=== PATIENT | female | born 1930 | race Caucasian/White ===

== ENCOUNTER 2017-11-08 05:32 | Inpatient (IN) ==
[2017-11-08] MEDS ORDERED: LORazepam 2 MG/1 ML VIAL IV STA ×2 (06:23→07:28)
[2017-11-08] MEDS ORDERED: ONDANSETRON 4 MG/2 ML VIAL IV STA (06:23)
[2017-11-08] MEDS ORDERED: SODIUM CHLORIDE 0.9% 1,000 ML IV STA (06:23)
[2017-11-08 06:38] LABS: Basophils % 0.5 % (0.0-0.8); Eosinophils % 0.3 % (0.00-10.9); Hematocrit 39.4 VOL% (35.7-47.0); Hemoglobin 14.4 GM/DL (12.0-16.0); Immature Granulocytes % 0.3 %; Immature Granulocytes Absolute 0.02 #; Lymphocytes # 0.8 10*3/uL (1.4-4.0); Lymphocytes % 13.3 % (21.3-54.2); Mean Corpuscular HGB Conc 36.5 GM/DL (32-36); Mean Corpuscular Hemoglobin 32 PG (27-34); Mean Corpuscular Volume 87.4 FL (87-102); Mean Platelet Volume 9.2 FL (9.6-12.0); Monocytes # 0.5 10*3/uL (0.11-0.8); Monocytes % 8.2 % (1.7-12.7); Neutrophils # 4.5 10*3/uL (1.4-7.4); Neutrophils % 77.4 % (38.7-73.9); Platelet Count 261 T/CUMM (130-400); Red Blood Count 4.51 MC/CUMM (3.8-5.5); Red Cell Distribution Width 13.1 % (9.3-17.3); White Blood Count 5.9 T/CUMM (4-12)
[2017-11-08 07:07] LABS: Lactic Acid 1.7 MMOL/L (0.4-2.0)
[2017-11-08 07:29] LABS: Bilirubin,Total 0.8 MG/DL (0.2-1.0); Calcium 9.4 MG/DL (8.5-10.1); Osmolality,Calculated 269.1 MOS/KG (273-304); Potassium 3.9 MMOL/L (3.5-5.1); Total Protein 7.8 G/DL (6.4-8.3)
[2017-11-08 08:06] LABS: Apearance,Urine CLEAR (Clear); Bilirubin,Urine Negative (Negative); Blood, Urine Small mg/dL (Negative); Glucose,Urine (UA) Negative (Negative); Ketones,Urine 5 mg/dL (Negative); Mucus,Urine Occasional /LPF (Occasional); Nitrite,Urine Negative (Negative); Protein,Urine Negative; RBC,Urine 2 /HPF (0-4); Urine Color Straw (Yellow); Urine Specific Gravity 1.005 (1.001-1.035); Urine Urobilinogen < 2.0 EU/DL (0.2-1.0); WBC,Urine <1 /HPF (0-6)
[2017-11-08] MEDS ORDERED: ESTROGENS (CONJ) VAG CREAM 30 GM TUBE VAG PRN (12:08)
[2017-11-08] MEDS ORDERED: hydroCHLOROthiazide 12.5 MG CAPSULE PO PRN (12:08)
[2017-11-08] MEDS ORDERED: ONDANSETRON ODT 4 MG TABLET PO PRN (12:08)
[2017-11-08] MEDS ORDERED: FLUTICASONE 50 MCG NASAL SPRAY 16 GM BOTTLE BOTH NARES PRN (12:08)
[2017-11-08] MEDS ORDERED: predniSONE 5 MG TABLET PO PRN (12:08)
[2017-11-08] MEDS ORDERED: POLYETHYLENE GLYCOL POWDER 17 GM PACK PO SCH (12:30)
[2017-11-08] MEDS: SODIUM CHLORIDE 0.9% 1,000 ML IV SCH (13:32)
[2017-11-08] MEDS ORDERED: LINACLOTIDE 145 MCG CAPSULE PO ONE (18:00)
[2017-11-08] MEDS: buPROPion 75 MG TABLET PO SCH (21:05)
[2017-11-08] MEDS: DOCUSATE SODIUM 100 MG CAPSULE PO SCH (21:05)
[2017-11-08] MEDS: POLYETHYLENE GLYCOL POWDER 17 GM PACK PO SCH (21:05)
[2017-11-09 06:31] LABS: Basophils # 0.1 10*3/uL (0.0-0.2); Basophils % 1.1 % (0.0-0.8); Eosinophils # 0.1 10*3/uL (0.0-0.87); Eosinophils % 1.5 % (0.00-10.9); Hematocrit 36.7 VOL% (35.7-47.0); Immature Granulocytes % 0.4 %; Immature Granulocytes Absolute 0.02 #; Lymphocytes # 0.9 10*3/uL (1.4-4.0); Lymphocytes % 16.7 % (21.3-54.2); Mean Corpuscular HGB Conc 35.4 GM/DL (32-36); Mean Corpuscular Hemoglobin 32 PG (27-34); Mean Corpuscular Volume 89.5 FL (87-102); Mean Platelet Volume 9.3 FL (9.6-12.0); Monocytes # 0.4 10*3/uL (0.11-0.8); Monocytes % 7.5 % (1.7-12.7); Neutrophils # 3.9 10*3/uL (1.4-7.4); Neutrophils % 72.8 % (38.7-73.9); Platelet Count 239 T/CUMM (130-400); Red Cell Distribution Width 13.1 % (9.3-17.3); White Blood Count 5.3 T/CUMM (4-12)
[2017-11-09 06:55] LABS: Calcium 8.8 MG/DL (8.5-10.1); Osmolality,Calculated 272.8 MOS/KG (273-304); Potassium 3.6 MMOL/L (3.5-5.1)
[2017-11-09] MEDS ORDERED: LINACLOTIDE 145 MCG CAPSULE PO SCH ×2 (07:30)
[2017-11-09] MEDS ORDERED: PANTOPRAZOLE 40 MG TABLET PO SCH (09:00)
[2017-11-09] MEDS: POLYETHYLENE GLYCOL POWDER 17 GM PACK PO SCH (09:45)
[2017-11-09] MEDS: DOCUSATE SODIUM 100 MG CAPSULE PO SCH (09:45)
[2017-11-09] MEDS: buPROPion 75 MG TABLET PO SCH (09:57)
[2017-11-09] MEDS: SODIUM CHLORIDE 0.9% 1,000 ML IV SCH (10:04)
[2017-11-09 11:29] VITALS: BP 149/85
== END 2017-11-09 14:32 | disposition home or self-care (01) | DRG 392 ==
LOC: N.ED 05:32 → N.EDINP 10:17 → N.2E 11:52
PROVIDERS: ADMIT Internal Medicine; ATTEND Internal Medicine

== ENCOUNTER 2020-10-19 17:05 | Observation (INO) ==
[2020-10-19] MEDS ORDERED: MECLIZINE 25 MG TABLET PO STA (17:33)
[2020-10-19] MEDS ORDERED: SODIUM CHLORIDE 0.9% 500 ML IV STA (17:33)
[2020-10-19] MEDS ORDERED: GLUCAGON 1 MG VIAL IM PRN (18:02)
[2020-10-19] MEDS ORDERED: DEXTROSE 50% 25 GM/50 ML VIAL IV PRN (18:02)
[2020-10-19] MEDS ORDERED: hydrALAZINE 20 MG/1 ML VIAL IV PRN (18:02)
[2020-10-19] MEDS ORDERED: ONDANSETRON 4 MG/2 ML VIAL IV PRN (18:02)
[2020-10-19] MEDS ORDERED: MECLIZINE 25 MG TABLET PO PRN (18:05)
[2020-10-19 18:13] LABS: Basophils % 0.2 % (0.0-0.8); Eosinophils % 0.1 % (0.00-10.9); Hematocrit 36.9 VOL% (35.7-47.0); Hemoglobin 12.4 GM/DL (12.0-16.0); Immature Granulocytes % 0.5 %; Immature Granulocytes Absolute 0.04 #; Lymphocytes # 0.5 10*3/uL (1.4-4.0); Lymphocytes % 5.8 % (21.3-54.2); Mean Corpuscular HGB Conc 33.6 GM/DL (32-36); Mean Corpuscular Volume 95.3 FL (87-102); Mean Platelet Volume 9.5 FL (9.6-12.0); Monocytes % 6.1 % (1.7-12.7); Neutrophils % 87.3 % (38.7-73.9); Platelet Count 211 T/CUMM (130-400); Red Blood Count 3.87 MC/CUMM (3.8-5.5); Red Cell Distribution Width 13.6 % (9.3-17.3); White Blood Count 8.3 T/CUMM (4-12)
[2020-10-19 18:36] LABS: Albumin 3.3 G/DL (3.4-5.0); Bilirubin,Total 0.4 MG/DL (0.2-1.0); Calcium 8.7 MG/DL (8.5-10.1); Potassium 3.8 MMOL/L (3.5-5.1); Total Protein 6.8 G/DL (6.4-8.2)
[2020-10-19] MEDS: SODIUM CHLORIDE 0.9% 1,000 ML IV SCH (19:03)
[2020-10-19] MEDS: ENOXAPARIN 40 MG/0.4 ML SYRINGE SUBCUT SCH (21:00)
[2020-10-19] MEDS ORDERED: MELATONIN 3 MG TABLET PO PRN (22:40)
[2020-10-20 05:31] LABS: Basophils % 0.4 % (0.0-0.8); Eosinophils % 0.1 % (0.00-10.9); Hemoglobin 11.7 GM/DL (12.0-16.0); Immature Granulocytes % 0.4 %; Immature Granulocytes Absolute 0.03 #; Lymphocytes # 1.1 10*3/uL (1.4-4.0); Lymphocytes % 13.9 % (21.3-54.2); Mean Corpuscular HGB Conc 33.4 GM/DL (32-36); Mean Corpuscular Volume 95.4 FL (87-102); Monocytes % 9.3 % (1.7-12.7); Neutrophils % 75.9 % (38.7-73.9); Platelet Count 223 T/CUMM (130-400); Red Blood Count 3.67 MC/CUMM (3.8-5.5); Red Cell Distribution Width 13.5 % (9.3-17.3)
[2020-10-20 05:47] LABS: Calcium 8.8 MG/DL (8.5-10.1); Osmolality,Calculated 271.8 MOS/KG (273-304); Potassium 3.9 MMOL/L (3.5-5.1)
[2020-10-20] MEDS: PANTOPRAZOLE 40 MG TABLET PO SCH (09:03)
[2020-10-20] MEDS: MECLIZINE 25 MG TABLET PO SCH ×3 (09:03→21:38)
[2020-10-20] MEDS: SODIUM CHLORIDE 0.9% 1,000 ML IV SCH ×2 (20:32→21:40)
[2020-10-20] MEDS: ENOXAPARIN 40 MG/0.4 ML SYRINGE SUBCUT SCH (21:38)
[2020-10-21 08:21] VITALS: BP 164/67
[2020-10-21] MEDS: PANTOPRAZOLE 40 MG TABLET PO SCH (09:42)
[2020-10-21] MEDS: MECLIZINE 25 MG TABLET PO SCH (09:42)
[2020-10-21] MEDS: SODIUM CHLORIDE 0.9% 1,000 ML IV SCH (11:35)
== END 2020-10-21 12:31 | disposition home or self-care (01) ==
LOC: EDBD → EDUNIT# → N.4E 17:05 → N.ED 17:05 → SUATTDRO 18:02 → N.4E 19:54
PROVIDERS: ADMIT Internal Medicine; ATTEND Internal Medicine

== ENCOUNTER 2021-03-08 11:26 | Observation (INO) ==
[2021-03-08] MEDS ORDERED: SODIUM CHLORIDE 0.9% 1,000 ML IV STA (11:36)
[2021-03-08 12:38] LABS: Basophils % 0.5 % (0.0-0.8); Eosinophils % 0.2 % (0.00-10.9); Hematocrit 40.3 VOL% (35.7-47.0); Hemoglobin 13.7 GM/DL (12.0-16.0); Immature Granulocytes % 0.3 %; Immature Granulocytes Absolute 0.02 #; Lymphocytes # 0.9 10*3/uL (1.4-4.0); Lymphocytes % 14.5 % (21.3-54.2); Mean Corpuscular Volume 92.6 FL (87-102); Mean Platelet Volume 9.9 FL (9.6-12.0); Monocytes % 7.4 % (1.7-12.7); Neutrophils % 77.1 % (38.7-73.9); Platelet Count 246 T/CUMM (130-400); Red Blood Count 4.35 MC/CUMM (3.8-5.5); Red Cell Distribution Width 13.8 % (9.3-17.3); White Blood Count 5.9 T/CUMM (4-12)
[2021-03-08 12:49] LABS: Barbiturates Screen,Urine Negative (Negative); Benzodiazepines Screen,Urine Negative (Negative); Cannabinoid Screen,Urine Negative (Negative); Opiate Screen,Urine Positive (Negative); Phencyclidine Screen,Urine Negative (Negative)
[2021-03-08 12:57] LABS: Bilirubin,Urine Negative (Negative); Blood, Urine Moderate mg/dL (Negative); Glucose,Urine (UA) Negative (Negative); Ketones,Urine 5 mg/dL (Negative); Mucus,Urine Few /LPF (Occasional); Nitrite,Urine Negative (Negative); Protein,Urine 30 MG/DL; RBC,Urine 6 /HPF (0-4); Squamous Epithelial Cell,Urine Many /HPF (0-10); Urine Appearance CLOUDY (Clear); Urine Color Amber (Yellow); Urine Specific Gravity 1.021 (1.001-1.035); Urine Urobilinogen < 2.0 EU/DL (0.2-1.0)
[2021-03-08] MEDS ORDERED: cefTRIAXone 1,000 MG in SODIUM CHLORIDE 0.9% 100 ML IV STA (13:04)
[2021-03-08 13:05] LABS: Albumin 3.8 G/DL (3.4-5.0); Bilirubin,Total 0.7 MG/DL (0.20-1.00); Calcium 9.3 MG/DL (8.5-10.1); Osmolality,Calculated 277.5 MOS/KG (273-304); Potassium 3.6 MMOL/L (3.5-5.1); Total Protein 7.8 G/DL (6.4-8.2)
[2021-03-08] MEDS ORDERED: DEXTROSE 50% 25 GM/50 ML VIAL IV PRN (14:47)
[2021-03-08] MEDS ORDERED: GLUCAGON 1 MG VIAL IM PRN (14:47)
[2021-03-08] MEDS ORDERED: ONDANSETRON 4 MG/2 ML VIAL IV PRN (14:47)
[2021-03-08] MEDS ORDERED: cefTRIAXone 1,000 MG in SODIUM CHLORIDE 0.9% 100 ML IV SCH (15:00)
[2021-03-08] MEDS ORDERED: ACETAMINOPHEN 325 MG TABLET PO PRN (15:18)
[2021-03-08] MEDS: SODIUM CHLORIDE 0.9% 1,000 ML IV SCH (16:45)
[2021-03-08] MEDS: ENOXAPARIN 40 MG/0.4 ML SYRINGE SUBCUT SCH (18:03)
[2021-03-08] MEDS: HALOPERIDOL 5 MG/ML AMP IM PRN (22:08)
[2021-03-09] MEDS: SODIUM CHLORIDE 0.9% 1,000 ML IV SCH ×2 (05:04→18:49)
[2021-03-09 06:29] LABS: Basophils # 0.1 10*3/uL (0.0-0.2); Basophils % 0.8 % (0.0-0.8); Eosinophils % 0.2 % (0.00-10.9); Hematocrit 37.5 VOL% (35.7-47.0); Hemoglobin 12.8 GM/DL (12.0-16.0); Immature Granulocytes % 0.2 %; Immature Granulocytes Absolute 0.01 #; Lymphocytes # 0.9 10*3/uL (1.4-4.0); Lymphocytes % 14.6 % (21.3-54.2); Mean Corpuscular HGB Conc 34.1 GM/DL (32-36); Mean Corpuscular Volume 93.8 FL (87-102); Mean Platelet Volume 9.8 FL (9.6-12.0); Monocytes % 7.8 % (1.7-12.7); Neutrophils % 76.4 % (38.7-73.9); Platelet Count 219 T/CUMM (130-400); Red Cell Distribution Width 13.8 % (9.3-17.3); White Blood Count 6.4 T/CUMM (4-12)
[2021-03-09 06:55] LABS: Calcium 8.6 MG/DL (8.5-10.1); Osmolality,Calculated 277.4 MOS/KG (273-304); Potassium 3.4 MMOL/L (3.5-5.1)
[2021-03-09] MEDS ORDERED: amLODIPine 2.5 MG TABLET PO SCH (09:00)
[2021-03-09] MEDS ORDERED: cefTRIAXone 1,000 MG in SODIUM CHLORIDE 0.9% 100 ML IV SCH (13:00)
[2021-03-09] MEDS: HALOPERIDOL 5 MG/ML AMP IM PRN (13:51)
[2021-03-09] MEDS ORDERED: hydrALAZINE 20 MG/1 ML VIAL IV PRN (18:31)
[2021-03-09] MEDS: ENOXAPARIN 40 MG/0.4 ML SYRINGE SUBCUT SCH (18:49)
[2021-03-09] MEDS: amLODIPine 2.5 MG TABLET PO SCH (21:17)
[2021-03-10] MEDS: SODIUM CHLORIDE 0.9% 1,000 ML IV SCH (08:43)
[2021-03-10] MEDS: amLODIPine 2.5 MG TABLET PO SCH (08:44)
[2021-03-10 11:25] VITALS: BP 146/65
== END 2021-03-10 13:51 | disposition home health service (06) ==
LOC: EDUNIT# → N.EDINP 11:26 → N.ED 11:26 → N.3E 15:40
PROVIDERS: ADMIT Internal Medicine; ATTEND Internal Medicine

== ENCOUNTER 2021-03-24 09:39 | Inpatient (IN) ==
[2021-03-24] MEDS ORDERED: SODIUM CHLORIDE 0.9% 500 ML IV STA (10:29)
[2021-03-24 11:20] LABS: Basophils % 0.5 % (0.0-0.8); Eosinophils % 0.2 % (0.00-10.9); Hematocrit 40.1 VOL% (35.7-47.0); Hemoglobin 13.7 GM/DL (12.0-16.0); Immature Granulocytes % 0.2 %; Immature Granulocytes Absolute 0.01 #; Lymphocytes # 0.7 10*3/uL (1.4-4.0); Lymphocytes % 11.7 % (21.3-54.2); Mean Corpuscular HGB Conc 34.2 GM/DL (32-36); Mean Corpuscular Volume 91.8 FL (87-102); Mean Platelet Volume 10.1 FL (9.6-12.0); Monocytes % 7.2 % (1.7-12.7); Neutrophils % 80.2 % (38.7-73.9); Platelet Count 227 T/CUMM (130-400); Red Blood Count 4.37 MC/CUMM (3.8-5.5); Red Cell Distribution Width 13.5 % (9.3-17.3); White Blood Count 5.7 T/CUMM (4-12)
[2021-03-24 11:28] LABS: Bilirubin,Urine Negative (Negative); Blood, Urine Moderate mg/dL (Negative); Glucose,Urine (UA) Negative (Negative); Ketones,Urine 20 mg/dL (Negative); Mucus,Urine Occasional /LPF (Occasional); Nitrite,Urine Negative (Negative); Protein,Urine 30 MG/DL; RBC,Urine 19 /HPF (0-4); Squamous Epithelial Cell,Urine Moderate /HPF (0-10); Urine Appearance CLOUDY (Clear); Urine Color Yellow (Yellow); Urine Specific Gravity 1.017 (1.001-1.035); Urine Urobilinogen < 2.0 EU/DL (0.2-1.0)
[2021-03-24 11:42] LABS: Albumin 3.8 G/DL (3.4-5.0); Bilirubin,Total 0.5 MG/DL (0.20-1.00); Calcium 9.4 MG/DL (8.5-10.1); Osmolality,Calculated 275.5 MOS/KG (273-304)
[2021-03-24] MEDS ORDERED: DOCUSATE SODIUM 100 MG CAPSULE PO PRN (12:50)
[2021-03-24] MEDS ORDERED: ALUMINUM/MAGNES/SIMETH MAX STR 30 ML UDCUP PO PRN (12:50)
[2021-03-24] MEDS ORDERED: ONDANSETRON 4 MG/2 ML VIAL IV PRN (12:50)
[2021-03-24] MEDS ORDERED: DEXTROSE 50% 25 GM/50 ML VIAL IV PRN (12:50)
[2021-03-24] MEDS ORDERED: GLUCAGON 1 MG VIAL IM PRN (12:50)
[2021-03-24] MEDS ORDERED: ACETAMINOPHEN 325 MG TABLET PO PRN (12:50)
[2021-03-24] MEDS: ENOXAPARIN 40 MG/0.4 ML SYRINGE SUBCUT SCH (13:45)
[2021-03-24] MEDS: SODIUM CHLORIDE 0.9% 1,000 ML IV SCH (13:48)
[2021-03-24] MEDS: RIVASTIGMINE 4.6 MG/24 HR PATCH TRANSDERM SCH (17:48)
[2021-03-25 05:31] LABS: Basophils # 0.1 10*3/uL (0.0-0.2); Basophils % 0.9 % (0.0-0.8); Eosinophils % 0.7 % (0.00-10.9); Hematocrit 37.8 VOL% (35.7-47.0); Hemoglobin 12.4 GM/DL (12.0-16.0); Immature Granulocytes % 0.4 %; Immature Granulocytes Absolute 0.02 #; Lymphocytes # 0.9 10*3/uL (1.4-4.0); Lymphocytes % 17.2 % (21.3-54.2); Mean Corpuscular HGB Conc 32.8 GM/DL (32-36); Mean Corpuscular Volume 94.5 FL (87-102); Mean Platelet Volume 10.3 FL (9.6-12.0); Monocytes % 8.8 % (1.7-12.7); Platelet Count 210 T/CUMM (130-400); Red Cell Distribution Width 13.6 % (9.3-17.3); White Blood Count 5.5 T/CUMM (4-12)
[2021-03-25 05:48] LABS: Albumin 3.2 G/DL (3.4-5.0); Bilirubin,Total 0.7 MG/DL (0.20-1.00); Calcium 8.6 MG/DL (8.5-10.1); Osmolality,Calculated 277.4 MOS/KG (273-304); Potassium 3.5 MMOL/L (3.5-5.1); Total Protein 6.1 G/DL (6.4-8.2)
[2021-03-25] MEDS: amLODIPine 5 MG TABLET PO SCH (09:28)
[2021-03-25] MEDS: PANTOPRAZOLE 40 MG TABLET PO SCH (09:28)
[2021-03-25] MEDS: RIVASTIGMINE 4.6 MG/24 HR PATCH TRANSDERM SCH (09:28)
[2021-03-25] MEDS: ENOXAPARIN 40 MG/0.4 ML SYRINGE SUBCUT SCH (14:22)
[2021-03-25] MEDS: HALOPERIDOL 5 MG/ML AMP IM PRN (16:08)
[2021-03-25] MEDS: SODIUM CHLORIDE 0.9% 1,000 ML IV SCH (18:16)
[2021-03-26] MEDS: HALOPERIDOL 5 MG/ML AMP IM PRN (00:53)
[2021-03-26] MEDS: SODIUM CHLORIDE 0.9% 1,000 ML IV SCH ×3 (06:23→20:44)
[2021-03-26] MEDS: amLODIPine 5 MG TABLET PO SCH (08:24)
[2021-03-26] MEDS: RIVASTIGMINE 4.6 MG/24 HR PATCH TRANSDERM SCH (08:24)
[2021-03-26] MEDS: PANTOPRAZOLE 40 MG TABLET PO SCH (08:24)
[2021-03-26] MEDS: ENOXAPARIN 40 MG/0.4 ML SYRINGE SUBCUT SCH (14:09)
[2021-03-27] MEDS: RIVASTIGMINE 4.6 MG/24 HR PATCH TRANSDERM SCH (08:51)
[2021-03-27] MEDS: amLODIPine 5 MG TABLET PO SCH (08:54)
[2021-03-27] MEDS: PANTOPRAZOLE 40 MG TABLET PO SCH (08:54)
[2021-03-27] MEDS: ENOXAPARIN 40 MG/0.4 ML SYRINGE SUBCUT SCH (08:57)
[2021-03-27] MEDS: SODIUM CHLORIDE 0.9% 1,000 ML IV SCH ×2 (10:05→23:30)
[2021-03-27] MEDS: QUEtiapine 25 MG TABLET PO SCH (21:45)
[2021-03-28] MEDS: RIVASTIGMINE 4.6 MG/24 HR PATCH TRANSDERM SCH (09:12)
[2021-03-28] MEDS: amLODIPine 5 MG TABLET PO SCH (09:13)
[2021-03-28] MEDS: QUEtiapine 25 MG TABLET PO SCH ×2 (09:13→21:46)
[2021-03-28] MEDS: PANTOPRAZOLE 40 MG TABLET PO SCH (09:13)
[2021-03-28] MEDS: ENOXAPARIN 40 MG/0.4 ML SYRINGE SUBCUT SCH (09:13)
[2021-03-28] MEDS: SODIUM CHLORIDE 0.9% 1,000 ML IV SCH (14:26)
[2021-03-28] MEDS ORDERED: ALBUTEROL 2.5 MG/3 ML NEB RESP TX PRN (14:29)
[2021-03-29] MEDS: ENOXAPARIN 40 MG/0.4 ML SYRINGE SUBCUT SCH (08:29)
[2021-03-29] MEDS: RIVASTIGMINE 4.6 MG/24 HR PATCH TRANSDERM SCH (08:30)
[2021-03-29] MEDS: QUEtiapine 25 MG TABLET PO SCH (08:30)
[2021-03-29] MEDS: amLODIPine 5 MG TABLET PO SCH (08:30)
[2021-03-29] MEDS: PANTOPRAZOLE 40 MG TABLET PO SCH (08:31)
[2021-03-29 08:49] VITALS: BP 181/85
[2021-03-29] MEDS: SODIUM CHLORIDE 0.9% 1,000 ML IV SCH (11:26)
== END 2021-03-29 11:07 | DRG 884 ==
LOC: EDBD → EDUNIT# → N.ED 09:39 → N.EDINP 12:51 → N.5E 14:43
PROVIDERS: ADMIT Internal Medicine; ATTEND Internal Medicine